=== PATIENT | female | born 1980 | race Caucasian/White ===

== ENCOUNTER 2018-12-15 06:52 | Inpatient (IN) | payer OTHER, MEDICAID ==
[2018-12-15] VITALS (40 sets, daily range): BP systolic 106–156; BP diastolic 55–98; PULSE 71–116; TEMP 97.6–98.8
[~2018-12-15] VITALS: Ht 165.1 cm; Wt 111.8 kg
[~2018-12-15 06:52] MED LIST: ANTIVERT 12.512.5 MG PO; MEDROL 4MG DOSPA4 MG PO; MULTIPLE VITAMI1 CAP PO; PEPCID 20MG TAB20 MG PO; PRENATAL VITAMI1 TA5 PO; XANAX .25M0.25 MG/TA PO
--- NOTE | 2018-12-15 07:30 | NUR ---
Pt arrives on unit ambulatory with spouse and is tearful. States anxiety over the induction. This RN at bedside. Explains plan for the day. Changed into a clean gown. EFM and toco applied. VSS. 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 One negative culture obtained at [facility]. Nasal swab obtained today. IV started in . Labs drawn. LR infusing. Admission assessment completed. Consents signed. Pt oriented to room. Call light within reach. No questions or concerns at this time.
[2018-12-15] MEDS ORDERED: LEVOXYL0.075 MG PO (07:50)
[2018-12-15] MEDS ORDERED: FIORINAL 325 MG1 CAP PO (07:52)
[2018-12-15 08:28] LABS: HEMOGLOBIN 13.3 g/dl (12.5-16.0); MEAN CELL VOLUME 95 fl (80.0-100.0); MEAN CORPUSCULAR HEMOGLOBIN 31 pg (27.0-31.0); MEAN CORPUSCULAR HGB CONC 32 g/dl (33.0-37.0); MEAN PLATELET VOLUME 10.8 fl (7.4-10.4); PLATELET COUNT 248 K/mm3 (130-400); REDCELL DISTRIBUTION WIDTH-CV 15.4 % (11.5-14.5)
[2018-12-15 09:14] LABS: BASOPHIL 1 % (0-2); EOSINOPHIL 4 % (0-4); LYMPHOCYTE 21 % (20.0-51.0); NEUTROPHILS 74 % (42.0-75.2); PLATELET ESTIMATE NORMAL (NORMAL)
--- NOTE | 2018-12-15 12:35 | NUR ---
SVE per this RN C/0. Dr. Hernandez requested to unit for delivery. Notified physician of late deceleration with return to baseline. 1242-Late decelerations continue. Pitocin shut off. LR bolus infusing. O2 applied via simple mask at 10L applied. Dr. Hernandez notified of FHR and requested ETA. Physician in parking lot. 1245-Dr. Gandhi at bedside. Instructs pt to start pushing. 1253- of viable female attended by Dr. Gandhi. dried and placed on mother's abdomen. Cord clamped x2 and cut. taken to warmer for further evaluation. Apgars 5/9/9. Care of to Rui Ibrahim RN. See nursery documentation. 1300-Dr. Hernandez at bedside. of placenta. Pitocin bolus infusing. Fundus firm at umbilicus. Bleeding WNL. Pericare performed. Ice pack applied. Pt updated on plan of care. Safety reviewed. Call light within reach. No questions or concerns at this time.
--- NOTE | 2018-12-15 16:05 | NUR ---
This RN at bedside. VS obtained. Fundal massage performed. Large amount of clots expressed. Dr. Hernandez notified of pt status. Requested to unit. Pads weighed. 450 g of clots. Pericare performed.
--- NOTE | 2018-12-15 18:35 | NUR ---
183- BEDSIDE REPORT RECEIVED, CARE ASSUMED. PT SITTING UP IN BED HOLDING BABY. INFORMED PT THAT WE WOULD LET HER KNOW WHEN SURGERY WAS CLOSER BUT THAT IT WOULD PROBABLY BE ABOUT AN HOUR, QUESTIONS ANSWERED. 1919- PT INFORMED SURGERY WOULD BE SOON. 1939- CONSENT FOR SURGERY SIGNED AND MARI Martin CRNA AT BEDSIDE ANSWERING PT QUESTIONS. 1941- PT TO OR PER WHEELCHAIR FOR D&C. SEE INTRAOPERATIVE NOTES. 2010- TO ROOM 207 PER CART. PT LETHARGIC BUT ORIENTED. 2014- POSTOPERATIVE VITAL SIGNS STARTED. PT FAMILY UPDATED BY DR JOHNSON AND QUESTIONS ANSWERED. 2214- PT WITH FAMILY AT BEDSIDE. EATING MEAL. WILL CALL OUT WHEN READY TO CHANGE BEDDING AND PAD.
--- NOTE | 2018-12-15 23:30 | NUR ---
2330- PT READY TO GET UP AND CLEAN UP. PT ASSISTED TO AMBULATE TO BATHROOM. UNABLE TO VOID AT THIS TIME. PT PERFORMS PERICARE. ICEPACK TO PERINEUM WHICH IS MILDLY SWOLLEN AT THIS TIME. CLEAN GOWN PAD AND PANTIES PROVIDED. PT ASSISTED BACK TO BED. DENIES FURTHER NEEDS AT THIS TIME.
[2018-12-16 01:45] VITALS: BP 106/64; PULSE 76; TEMP 98.3
[2018-12-16 07:00] VITALS: BP 125/70; PULSE 84; TEMP 97.7
[2018-12-16 12:00] VITALS: BP 132/70; PULSE 76; TEMP 98.1
[2018-12-16 16:10] VITALS: BP 139/83; PULSE 70; TEMP 98.4
[2018-12-16 20:30] VITALS: BP 133/60; PULSE 81; TEMP 98.3
[2018-12-16 22:15] LABS: HEMATOCRIT 27.5 % (37.0-47.0)
[2018-12-17 08:25] VITALS: BP 117/67; PULSE 73; TEMP 98.1
[2018-12-17] MEDS ORDERED: IBU600 MG PO (11:41)
[2018-12-17] MEDS ORDERED: PERCOCET 325 MG1 TA2 PO (11:41)
== END 2018-12-17 15:15 | disposition home or self-care (01) | DRG 797 ==
LOC: LDR 06:52 → OB 12-16 06:50
PROVIDERS: Obstetrics & Gynecology; ADMIT Obstetrics & Gynecology
PROC: 10E0XZZ Delivery of Products of Conception, External Approach (ICD-10-PCS; principal; 2018-12-15)
PROC: 10D17ZZ Extraction of Products of Conception, Retained, Via Natural or Artificial Opening (ICD-10-PCS; 2018-12-15)
PROC: 3E033VJ Introduction of Other Hormone into Peripheral Vein, Percutaneous Approach (ICD-10-PCS; 2018-12-15)
PROC: 0HQ9XZZ Repair Perineum Skin, External Approach (ICD-10-PCS; 2018-12-15)
DX: O99.354 Diseases of the nervous system complicating childbirth (principal); D62 Acute posthemorrhagic anemia; Z37.0 Single live birth; O77.0 Labor and delivery complicated by meconium in amniotic fluid; Z3A.39 39 weeks gestation of pregnancy; O70.0 First degree perineal laceration during delivery; G35 Multiple sclerosis; O99.284 Endocrine, nutritional and metabolic diseases complicating childbirth; E03.9 Hypothyroidism, unspecified; O76 Abnormality in fetal heart rate and rhythm complicating labor and delivery; O72.2 Delayed and secondary postpartum hemorrhage; O90.81 Anemia of the puerperium
CPT/HCPCS: J0690; J2590; J2704; J3010; J7120

== ENCOUNTER → 2018-12-20 | Outpatient (CLI) | payer OTHER, MEDICAID ==
[~2018-12-20] MED LIST changes: +FIORINAL 325 MG1 CAP PO; +IBU600 MG PO; +LEVOXYL0.075 MG PO; +PERCOCET 325 MG1 TA2 PO
--- NOTE | 2018-12-20 15:24 | NUR ---
Pt, Santakathy Sims, presents for outpatient consult with 5 day old baby girl, Nilam Sims, because of sore nipples. Nilam was born on [birth year] and weighed 8#2.5oz, and was discharged at two days of age weighing 7#10oz. Today Nilam weighs 7#14.1oz (3576 gms). Pt reports infant voids 6 or more times per day. Her last bowel movement was yesterday. Pt's nipples are both cracked and have multiple areas of skin seperation. She has started using a nipple shield that does protect the tissue with feedings. Pt allows this LC to latch baby and with assistance baby is able to latch better with little pain after initial latch but pt cannot coordinate getting baby to open widely and get enough breast into her mouth without assistance. Pt advised to use nipple shield as needed, consider taking a nursing break for 24-48 hours to allow healing. Prescription for Jameel's Nipple Cream requested from Dr. Yao's nurse. Anticipate nipple soreness to improve in 5-7 days if pt utilizes above suggestions. Questions invited and answered.
== END ==
LOC: LAC 14:19
DX: Z39.1 Encounter for care and examination of lactating mother (principal); Z71.89 Other specified counseling

== ENCOUNTER → 2019-01-30 | Outpatient (CLI) | payer OTHER, MEDICAID | LOC: COL.RAD 12:30 | DX: G35 Multiple sclerosis (principal); G95.9 Disease of spinal cord, unspecified; G93.89 Other specified disorders of brain | CPT/HCPCS: A9585 ==

== ENCOUNTER → 2024-02-08 | Outpatient (CLI) | payer BC ==
[2006-04-08 07:00] VITALS: BP 118/58; PULSE 78; TEMP 98.1
== END ==
LOC: MC.RAD 14:30
DX: Z12.31 Encounter for screening mammogram for malignant neoplasm of breast (principal)

== ENCOUNTER 2024-06-14 16:18 | Emergency (ER) | payer SELFPAY ==
[~2024-06-14] VITALS: Ht 162.6 cm; Wt 75.0 kg
[2024-06-14 16:23] VITALS: TEMP 98.3
[2024-06-14] MEDS ORDERED: Ketorolac 30 MG/ML VIAL IM ONE (17:15)
[2024-06-14] MEDS ORDERED: NAPROXEN 3375 MG/TAB PO (17:16)
[2024-06-14] MEDS ORDERED: FLEXERIL 1010 MG/TAB PO (17:16)
[2024-06-14 17:54] VITALS: BP 123/82; PULSE 69
== END 2024-06-14 17:54 | disposition home or self-care (01) ==
LOC: COL.ER 16:18
DX: M54.2 Cervicalgia (principal); V89.2XXA Person injured in unspecified motor-vehicle accident, traffic, initial encounter
CPT/HCPCS: J1885; J2360

== ENCOUNTER 2024-08-17 17:54 | Emergency (ER) | payer BC ==
[~2024-08-17] VITALS: Ht 162.6 cm; Wt 75.0 kg
[~2024-08-17 17:54] MED LIST changes: +FLEXERIL 1010 MG/TAB PO; +NAPROXEN 3375 MG/TAB PO
[2024-08-17 17:59] VITALS: TEMP 98.1
[2024-08-17] MEDS ORDERED: diphenhydrAMINE 50 MG/ML 1 ML VIAL IV ONE (18:45)
[2024-08-17] MEDS ORDERED: NS 1,000 ML IV ONE (18:45)
[2024-08-17] MEDS ORDERED: Acetaminophen 500 MG TAB PO ONE (18:45)
[2024-08-17 18:55] LABS: COLLECTION METHOD CLEAN CATCH
[2024-08-17 19:02] LABS: URINE APPEARANCE CLOUDY (CLEAR/HAZY); URINE BLOOD NEGATIVE (NEGATIVE); URINE COLOR YELLOW (YELLOW); URINE GLUCOSE NEGATIVE (NEGATIVE); URINE KETONE 1+ (NEGATIVE); URINE NITRATE NEGATIVE (NEGATIVE); URINE PROTEIN(semi-quant) NEGATIVE (NEGATIVE); URINE UROBILINOGEN 0.2 E.U/dL (0.2-1.0)
[2024-08-17 19:21] LABS: ALBUMIN 4.2 g/dL (3.5-5.0); BILIRUBIN,TOTAL 0.6 mg/dL (0.2-1.2); CALCIUM 9.9 mg/dL (8.4-10.2); CREATININE, serum 0.85 mg/dL (0.57-1.11); POTASSIUM 3.6 mEq/L (3.5-4.5); TOTAL PROTEIN 6.9 g/dl (6.2-8.1)
[2024-08-17 19:33] LABS: BASO % 0.5 % (0.0-2.0); EOS # 0.1 K/mm3 (0.0-0.7); EOS % 0.8 % (0.0-4.0); GRAN # 6.7 K/mm3 (1.4-6.5); GRAN % 75.9 % (42.2-75.2); HEMOGLOBIN 12.4 g/dl (12.5-16.0); LYMPH # 1.6 K/mm3 (1.2-3.4); LYMPH % 17.5 % (20.0-51.0); MEAN CELL VOLUME 98 fl (80.0-100.0); MEAN CORPUSCULAR HEMOGLOBIN 32 pg (27-31); MEAN CORPUSCULAR HGB CONC 33 g/dl (33.0-37.0); MEAN PLATELET VOLUME 8.9 fl (7.4-10.4); MONO # 0.4 K/mm3 (0.1-0.6); PLATELET COUNT 348 K/mm3 (130-400); RED BLOOD COUNT 3.89 M/mm3 (4.10-5.30); REDCELL DISTRIBUTION WIDTH-CV 14.2 % (11.5-14.5)
[2024-08-17] MEDS ORDERED: dexAMETHasone 10 MG/ML VIAL IV ONE (20:15)
[2024-08-17] MEDS ORDERED: Ketorolac 15 MG/ML VIAL IV ONE (20:15)
[2024-08-17 20:24] VITALS: BP 115/76; PULSE 63
== END 2024-08-17 20:33 | disposition home or self-care (01) ==
LOC: COL.ER 17:54
PROVIDERS: Emergency Medicine
DX: R51.9 Headache, unspecified (principal); R11.2 Nausea with vomiting, unspecified; R10.30 Lower abdominal pain, unspecified; Z86.69 Personal history of other diseases of the nervous system and sense organs
CPT/HCPCS: J1100; J1200; J1885; J2765; J7030